=== PATIENT | male | born 1990 | race Caucasian/White ===

== ENCOUNTER 2024-07-25 15:48 | Emergency (ER) | payer MEDICAID ==
[~2024-07-25] VITALS: Ht 190.5 cm; Wt 93.0 kg
[2024-07-25 16:00] VITALS: BP_SYST 128; PULSE 66; RESP 18; TEMP 98.3; O2SAT 98
[2024-07-25 19:03] VITALS: BP_SYST 128; PULSE 66; RESP 18; TEMP 98.3; O2SAT 98
== END 2024-07-25 19:04 | disposition home or self-care (01) ==
LOC: SED 15:48
DX: Z11.1 Encounter for screening for respiratory tuberculosis (principal); R05.9 Cough, unspecified
CPT/HCPCS: 71045; 99283